=== PATIENT | female | born 1980 | race Caucasian/White ===

== ENCOUNTER 2017-11-30 00:10 | Emergency (ER) | payer OTHER ==
[~2017-11-30] VITALS: Ht 165.1 cm; Wt 104.0 kg
[~2017-11-30 00:10] MED LIST: ALEVE220 M2 PO; COLACE100 MG PO; LORTAB5 PO; NO HOME MEDS; OMEPRA/BICAR1 CAP PO; ZOFRAN ODT8 MG PO
[2017-11-30] MEDS ORDERED: PRILOSEC OTC20 MG PO (00:26)
[2017-11-30] MEDS ORDERED: SODIUM BICARBI650 MG PO (00:27)
[2017-11-30] MEDS ORDERED: DOCUSATE SOD100 M2 PO (00:28)
[2017-11-30] MEDS ORDERED: TUMERIC (00:29)
[2017-11-30] MEDS ORDERED: NAPROSYN500 MG PO (02:15)
[2017-11-30 02:19] VITALS: BP 140/71
== END 2017-11-30 02:25 | disposition home or self-care (01) | DRG 563 ==
LOC: ED 00:10
DX: S83.91XA Sprain of unspecified site of right knee, initial encounter (principal); S93.401A Sprain of unspecified ligament of right ankle, initial encounter; F17.210 Nicotine dependence, cigarettes, uncomplicated; K21.9 Gastro-esophageal reflux disease without esophagitis; X50.1XXA Overexertion from prolonged static or awkward postures, initial encounter

== ENCOUNTER → 2018-03-04 | Day surgery (SDC) | payer OTHER ==
[~2018-03-04] VITALS: Ht 165.1 cm; Wt 99.3 kg
[~2018-03-04] MED LIST changes: +ACETAMIN325 MG PO; +ALEVE220 M1 PO; +DOCUSATE SOD100 M2 PO; +NAPROSYN500 MG PO; +PERCOCET 10/31 COMBO PO; +PRILOSEC OTC20 MG PO; +SODIUM BICARBI650 MG PO; +TUMERIC
[2018-03-04 10:13] VITALS: BP 125/61
== END | disposition home or self-care (01) | DRG 489 ==
LOC: ORM 05:58
PROVIDERS: ATTEND Orthopaedic Surgery
PROC: 0SBC4ZZ Excision of Right Knee Joint, Percutaneous Endoscopic Approach (ICD-10-PCS; principal; 2018-03-04)
DX: S83.231A Complex tear of medial meniscus, current injury, right knee, initial encounter (principal); M65.861 Other synovitis and tenosynovitis, right lower leg; S83.281A Other tear of lateral meniscus, current injury, right knee, initial encounter; M67.51 Plica syndrome, right knee; M94.261 Chondromalacia, right knee; X58.XXXA Exposure to other specified factors, initial encounter

== ENCOUNTER 2019-01-02 12:20 | Emergency (ER) | payer OTHER ==
[~2019-01-02] VITALS: Ht 165.1 cm; Wt 95.0 kg
[2019-01-02 12:58] LABS: GFR > 60 ML/MIN (>=60 (CALC)); GFR FOR AFR.AMER. > 60 ML/MIN (>=60 (CALC))
[2019-01-02 13:01] LABS: IMMATURE GRANULOCYTES 0.5 % (0.0-5.0); MEAN CORPUSCULAR HGB 30.8 pG CALC (26.0-32.0); MEAN CORPUSCULAR HGB CONC 33.1 g/L CALC (32.0-36.0); NEUT# 8.32 thou/uL (2.00-7.15); RED BLOOD COUNT 4.65 mill/uL (4.20-5.60); RED CELL DISTRI WIDTH 12.8 % (11.5-15.5)
[2019-01-02 13:06] LABS: HEMATOCRIT 43.2 % (37.0-47.0); HEMOGLOBIN 14.3 g/dl (12.0-16.0); MEAN CELL VOLUME 92.9 fL CALC (80.0-100.0)
[2019-01-02 13:17] LABS: ALBUMIN 4.4 g/dL (3.2-5.0); ALKALINE PHOSPHATASE 53 u/l (38-126); ANION GAP 15 (6-22 (CALC)); BILIRUBIN, TOTAL 0.8 mg/dL (0.0-1.4); BUN 27 mg/dL (7-17); BUN/CREATININE RATIO 40 (12-20 (CALC)); CARBON DIOXIDE 22 mmol/l (22-30); CHLORIDE 106 mmol/l (95-108); CREATININE 0.7 mg/dL (0.5-1.0); GFR > 60 ML/MIN (>=60 (CALC)); GFR FOR AFR.AMER. > 60 ML/MIN (>=60 (CALC)); POTASSIUM 4.3 mmol/l (3.5-5.1); SGOT/AST 19 u/l (14-36); SODIUM 139 mmol/l (137-146); TOTAL PROTEIN 7.9 g/dL (6.3-8.2)
[2019-01-02 16:08] VITALS: BP 144/79
== END 2019-01-02 16:08 | disposition short-term general hospital (02) | DRG 66 ==
LOC: ED 12:20
PROVIDERS: Family Medicine
DX: I63.9 Cerebral infarction, unspecified (principal); R53.1 Weakness; R51 Headache; R11.2 Nausea with vomiting, unspecified; H53.8 Other visual disturbances
CPT/HCPCS: Q9967

== ENCOUNTER 2019-07-19 18:44 | Emergency (ER) | payer OTHER ==
[~2019-07-19] VITALS: Ht 165.1 cm; Wt 100.0 kg
[2019-07-19] MEDS ORDERED: IBUPROFEN600 MG PO (20:57)
[2019-07-19 21:15] VITALS: BP 129/78
== END 2019-07-19 21:15 | disposition home or self-care (01) | DRG 552 ==
LOC: ED 18:44
DX: S16.1XXA Strain of muscle, fascia and tendon at neck level, initial encounter (principal); F17.210 Nicotine dependence, cigarettes, uncomplicated; V43.52XA Car driver injured in collision with other type car in traffic accident, initial encounter

== ENCOUNTER 2021-04-05 23:18 | Emergency (ER) | payer OTHER ==
[~2021-04-05] VITALS: Ht 165.1 cm; Wt 100.0 kg
[~2021-04-05 23:18] MED LIST changes: +IBUPROFEN600 MG PO
[2021-04-05] MEDS ORDERED: INDERAL 40MG TA40 MG PO (23:40)
[2021-04-06] MEDS ORDERED: NAPROXEN500 MG PO (00:21)
[2021-04-06 00:30] VITALS: BP 159/71
== END 2021-04-06 00:30 | disposition home or self-care (01) | DRG 605 ==
LOC: ED 23:18
PROC: 2W3JX1Z Immobilization of Right Finger using Splint (ICD-10-PCS; principal; 2021-04-05)
DX: S60.221A Contusion of right hand, initial encounter (principal); K21.9 Gastro-esophageal reflux disease without esophagitis; F17.200 Nicotine dependence, unspecified, uncomplicated; W20.8XXA Other cause of strike by thrown, projected or falling object, initial encounter; Y93.89 Activity, other specified; Y92.89 Other specified places as the place of occurrence of the external cause; Y99.0 Civilian activity done for income or pay

== ENCOUNTER 2022-02-08 20:15 | Emergency (ER) | payer OTHER ==
[~2022-02-08] VITALS: Ht 165.1 cm; Wt 113.6 kg
[2022-02-08] VITALS (7 sets, daily range): BP systolic 90–150; BP diastolic 67–111
[~2022-02-08 20:15] MED LIST changes: +INDERAL 40MG TA40 MG PO; +NAPROXEN500 MG PO
[2022-02-08] MEDS ORDERED: TESSALON PERLE100 MG PO (21:24)
[2022-02-08] MEDS ORDERED: TAM75CAP PO (21:24)
== END 2022-02-08 21:42 | disposition home or self-care (01) | DRG 195 ==
LOC: ED 20:15
DX: J10.1 Influenza due to other identified influenza virus with other respiratory manifestations (principal); K21.9 Gastro-esophageal reflux disease without esophagitis; F17.200 Nicotine dependence, unspecified, uncomplicated; Z20.822 Contact with and (suspected) exposure to COVID-19